=== PATIENT | male | born 2000 | race African-American/Black ===

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

== ENCOUNTER 2019-10-17 13:26 | Emergency (ER) | payer BC, SELFPAY ==
--- NOTE | 2019-10-17 15:12 | RAD ---
EXAM: Chest Two Views 10/17/2019 3:10 PM HISTORY: Cough congestion and body COMPARISON: None FINDINGS: Heart: Normal in size and contour. Pulmonary vessels: Normal. Costophrenic angles: Clear. Lungs: No acute airspace consolidation. Pneumothorax: None. Osseous structures:Intact. Additional findings: None. IMPRESSION: No significant acute intrathoracic disease.
[2019-10-17] MEDS ORDERED: Acetaminophen 500 MG TAB ONE (15:29)
[2019-10-17] MEDS ORDERED: Metoclopramide HCl 10 MG/2 ML VIAL ONE (15:36)
[2019-10-17] MEDS ORDERED: diphenhydrAMINE 50 MG/ML VIAL ONE (15:36)
[2019-10-17] MEDS ORDERED: Ketorolac Tromethamine 30 MG/ML VIAL ONE (15:36)
== END 2019-10-17 15:55 | disposition home or self-care (01) ==
LOC: ERS 13:26
DX: J10.1 Influenza due to other identified influenza virus with other respiratory manifestations (principal); R51 Headache; J45.909 Unspecified asthma, uncomplicated
CPT/HCPCS: 71046; 87804; 96365; 96375; J1200; J1885; J2765

== ENCOUNTER 2021-02-05 13:08 | Emergency (ER) | payer SELFPAY ==
[2021-02-05] MEDS ORDERED: Acetaminophen 500 MG TAB ONE (14:00)
[2021-02-05] MEDS ORDERED: Metoclopramide HCl 10 MG/2 ML VIAL ONE (14:00)
[2021-02-05] MEDS ORDERED: diphenhydrAMINE 50 MG/ML VIAL ONE (14:00)
== END 2021-02-05 15:15 | disposition home or self-care (01) ==
LOC: ERS 13:08
DX: R51.9 Headache, unspecified (principal); R29.700 NIHSS score 0; J45.909 Unspecified asthma, uncomplicated
CPT/HCPCS: 96374; 96375; J1200; J2765

== ENCOUNTER 2021-10-02 16:24 | Emergency (ER) | payer SELFPAY ==
[2021-10-03 08:54] LABS: SARS-CoV-2 PCR by NAA Not Detected (NotDetected)
== END 2021-10-02 18:19 | disposition home or self-care (01) ==
LOC: ERS 16:24
DX: B34.9 Viral infection, unspecified (principal); J45.909 Unspecified asthma, uncomplicated; G43.909 Migraine, unspecified, not intractable, without status migrainosus; Z20.822 Contact with and (suspected) exposure to COVID-19
CPT/HCPCS: 99284; U0003; U0005

== ENCOUNTER 2021-11-24 17:31 | Emergency (ER) | payer SELFPAY ==
[2021-11-24 17:56] LABS: #Basophils 0.1 thou/uL (0.0-0.2); #Eosinphils 0.1 thou/uL (0.0-0.7); #Monocytes 0.6 thou/uL (0.11-0.59); #Neutrophils 5.1 thou/uL (1.40-6.50); %Basophils 0.9 % (0.0-1.0); %Eosinophils 1.3 % (0.0-10.0); %Lymphocytes 26.1 % (21.0-51.0); %Monocytes 7.1 % (0.0-10.0); %Neutrophils 64.6 % (42.0-75.0); Mean Corpuscular HGB CONC 33.4 g/dL (32.0-36.0); Mean Corpuscular Volume 89.7 fL (78.0-98.0); Mean Platelet Volume 6.9 fL (7.4-10.4); Platelet Count 266 thou/uL (130-400); White Blood Cell (WBC) Count 7.8 thou/uL (4.8-10.8)
[2021-11-24 18:19] LABS: ALT (SGPT) 13 U/L (8-55); AST (SGOT) 17 U/L (5-34); Albumin 4.2 g/dL (3.5-5.0); Alkaline Phosphatase 48 U/L (40-110); Anion Gap 9 mmol/L (10-20); BUN (Urea Nitrogen) 17 mg/dL (8.9-20.6); Bilirubin, Total 1.4 mg/dL (0.2-1.2); Calc. Creatinine Clearance 0 mL/min (70-130); Calcium 9.2 mg/dL (7.8-10.44); Carbon Dioxide 27 mmol/L (22-29); Chloride 107 mmol/L (98-107); Globulin 3.1 g/dL (2.4-3.5); Glucose 91 mg/dL (70-105); Potassium 3.9 mmol/L (3.5-5.1); Protein, Total 7.3 g/dL (6.0-8.3); Sodium 139 mmol/L (136-145)
== END 2021-11-24 18:51 | disposition home or self-care (01) ==
LOC: ERS 17:31
DX: R42 Dizziness and giddiness (principal); G43.909 Migraine, unspecified, not intractable, without status migrainosus; J45.909 Unspecified asthma, uncomplicated
CPT/HCPCS: 36415; 80053; 84484; 85025; 93005

== ENCOUNTER 2022-02-09 18:03 | Emergency (ER) | payer SELFPAY | END 2022-02-09 19:11 | disposition home or self-care (01) | LOC: ERS 18:03 | DX: J45.909 Unspecified asthma, uncomplicated (principal) | CPT/HCPCS: 87804; 99283 ==

== ENCOUNTER 2022-02-10 17:37 | Emergency (ER) | payer SELFPAY ==
[2022-02-11 12:00] LABS: SARS-CoV-2 PCR by NAA Not Detected (NotDetected)
== END 2022-02-10 19:55 | disposition home or self-care (01) ==
LOC: ERS 17:37
DX: M79.10 Myalgia, unspecified site (principal); J34.89 Other specified disorders of nose and nasal sinuses; J45.909 Unspecified asthma, uncomplicated; Z20.822 Contact with and (suspected) exposure to COVID-19
CPT/HCPCS: 99283; U0003; U0005

== ENCOUNTER 2022-02-24 19:40 | Emergency (ER) | payer SELFPAY | END 2022-02-24 20:37 | disposition home or self-care (01) | LOC: ERS 19:40 | DX: R11.2 Nausea with vomiting, unspecified (principal); R19.7 Diarrhea, unspecified; J45.909 Unspecified asthma, uncomplicated | CPT/HCPCS: 99283 ==

== ENCOUNTER 2023-04-02 11:18 | Emergency (ER) | payer SELFPAY ==
[2023-04-02] MEDS ORDERED: Ondansetron ODT 4 MG TAB ONE (11:31)
[2023-04-02 12:48] LABS: SARS-CoV-2 NAA Rapid Test Not Detected (NotDetected)
== END 2023-04-02 13:00 | disposition home or self-care (01) ==
LOC: ERS 11:18
DX: B34.9 Viral infection, unspecified (principal); Z20.822 Contact with and (suspected) exposure to COVID-19
CPT/HCPCS: 99284; Q0162

== ENCOUNTER 2023-05-06 15:04 | Emergency (ER) | payer SELFPAY ==
[2023-05-06 16:04] LABS: Bacteria/HPF None Seen HPF (None Seen); Bilirubin Negative (Negative); Blood, Urine Negative (Negative); CAUTI Indications for Culture Pelvic or flank pain; Clarity Turbid (Clear); Glucose, Urine (Dipstick) Normal (Negative); Ketone, Urine Negative (Negative); Leukocyte Negative Leu/uL (Negative); Nitrite Negative (Negative); Protein, Urine (Dipstick) 10 mg/dL (Neg-Trace); RBC/HPF 0-3 HPF (0-3); Specific Gravity, Urine 1.027 (1.002-1.036); Squamous Epithelial None Seen HPF (0-3); Urobilinogen Normal mg/dL (Less than 2); WBC/HPF 0-3 HPF (0-3)
[2023-05-06 16:06] LABS: Urine Culture Reflex No No
[2023-05-07 03:40] LABS: Chlam.trachomatis by PCR,Urine Not Detected (NotDetected); GC N.gonorrhoeae PCR,UrineVOID Not Detected (NotDetected)
== END 2023-05-06 16:27 | disposition home or self-care (01) ==
LOC: ERS 15:04
DX: R10.31 Right lower quadrant pain (principal); R35.0 Frequency of micturition
CPT/HCPCS: 81001; 87491; 87591; 99284

== ENCOUNTER 2023-05-25 05:14 | Emergency (ER) | payer SELFPAY ==
[2023-05-25] MEDS ORDERED: Boostrix 0.5 ML (Tdap) VIAL (>/=7 yrs of age) ONE (06:06)
== END 2023-05-25 06:16 | disposition home or self-care (01) ==
LOC: ERS 05:14
DX: S61.215A Laceration without foreign body of left ring finger without damage to nail, initial encounter (principal); W26.8XXA Contact with other sharp object(s), not elsewhere classified, initial encounter; Z23 Encounter for immunization
CPT/HCPCS: 12001; 90471; 90715

== ENCOUNTER 2023-06-08 11:47 | Emergency (ER) | payer SELFPAY ==
[2023-06-08 13:27] LABS: SARS-CoV-2 NAA Rapid Test Not Detected (NotDetected)
== END 2023-06-08 15:38 | disposition home or self-care (01) ==
LOC: ERS 11:47
DX: J11.1 Influenza due to unidentified influenza virus with other respiratory manifestations (principal); Z20.822 Contact with and (suspected) exposure to COVID-19
CPT/HCPCS: 99283; U0002

== ENCOUNTER 2023-10-18 16:26 | Emergency (ER) | payer SELFPAY ==
[2023-10-18] MEDS ORDERED: Ketorolac Tromethamine 30 MG (1 mL) VIAL ONE (19:37)
== END 2023-10-18 19:55 | disposition home or self-care (01) ==
LOC: ERS 16:26
DX: S13.4XXA Sprain of ligaments of cervical spine, initial encounter (principal); M54.6 Pain in thoracic spine; V89.2XXA Person injured in unspecified motor-vehicle accident, traffic, initial encounter; W22.11XA Striking against or struck by driver side automobile airbag, initial encounter
CPT/HCPCS: 72040; 72072; 96372; J1885

== ENCOUNTER 2023-12-10 12:36 | Emergency (ER) | payer SELFPAY ==
[2023-12-10] MEDS ORDERED: Boostrix 0.5 ML (Tdap) VIAL (>/=7 yrs of age) ONE (13:05)
[2023-12-10] MEDS ORDERED: Lidocaine 1% w/Epinephrine 1:100K 20 ML VIAL ONE (13:17)
[2023-12-10] MEDS ORDERED: Bacitracin 1 PK ONE (14:26)
== END 2023-12-10 14:52 | disposition home or self-care (01) ==
LOC: ERS 12:36
DX: S51.811A Laceration without foreign body of right forearm, initial encounter (principal); F17.290 Nicotine dependence, other tobacco product, uncomplicated; W23.1XXA Caught, crushed, jammed, or pinched between stationary objects, initial encounter; Z23 Encounter for immunization
CPT/HCPCS: 12004; 90471; 90715

== ENCOUNTER 2023-12-17 13:48 | Emergency (ER) | payer SELFPAY | END 2023-12-17 15:16 | disposition home or self-care (01) | LOC: ERS 13:48 | DX: S41.111D Laceration without foreign body of right upper arm, subsequent encounter (principal); X58.XXXD Exposure to other specified factors, subsequent encounter ==

== ENCOUNTER 2024-09-22 10:24 | Emergency (ER) | payer SELFPAY ==
[2024-09-22] MEDS ORDERED: Dexamethasone 10 MG/ML VIAL ONE (11:09)
[2024-09-22] MEDS ORDERED: Ibuprofen 800 MG TAB ONE ×2 (11:09→11:10)
== END 2024-09-22 11:18 | disposition home or self-care (01) ==
LOC: ERS 10:24
DX: J02.8 Acute pharyngitis due to other specified organisms (principal); F17.290 Nicotine dependence, other tobacco product, uncomplicated
CPT/HCPCS: 99283; J1100

== ENCOUNTER 2024-11-07 09:28 | Emergency (ER) | payer SELFPAY | END 2024-11-07 10:10 | disposition home or self-care (01) | LOC: ERS 09:28 | DX: K08.89 Other specified disorders of teeth and supporting structures (principal); F17.290 Nicotine dependence, other tobacco product, uncomplicated | CPT/HCPCS: 99282 ==